=== PATIENT | male | born 1985 | race American Indian/Alaskan Native ===

== ENCOUNTER 2019-09-14 22:16 | Inpatient (IN) | payer OTHER ==
[2019-09-15 02:02] LABS: Basophils # (Auto) 0.1 K/mm3 (0.0-0.1); Basophils % (Auto) 0.8 % (0.0-1.8); Eosinophils # (Auto) 0.1 K/mm3 (0.0-0.4); Eosinophils % (Auto) 0.6 % (0.0-4.3); Hematocrit 45.3 % (35.5-45.6); Hemoglobin 15.4 gm/dl (11.8-15.2); Lymphocytes # (Auto) 4.1 K/mm3 (1.2-5.4); Lymphocytes % (Auto) 27.2 % (13.4-35.0); Mean Corpuscular HGB Conc 34 % (32-34); Mean Corpuscular Volume 89 fl (84-94); Monocytes # (Auto) 1.1 K/mm3 (0.0-0.8); Monocytes % (Auto) 7.6 % (0.0-7.3); Platelet Count 333 K/mm3 (140-440); Red Blood Count 5.07 M/mm3 (3.65-5.03)
[2019-09-15 02:10] LABS: BUN/Creatinine Ratio 11; Blood Urea Nitrogen 9 mg/dL (9-20); Calcium 9.7 mg/dL (8.4-10.2); Hemolysis Index 16
[2019-09-15 02:13] LABS: Bilirubin,Urine NEG (Negative); Blood,Urine SM (Negative); Color,Urine Straw (Yellow); Mucus,Urine FEW /HPF; Urobilinogen,Urine < 2.0 mg/dL (<2.0)
[2019-09-15] MEDS ORDERED: ONDANSETRON 4 MG/2 ML INJ IV ONE (04:43)
[2019-09-15] MEDS ORDERED: SODIUM CHLORIDE 0.9% 1000 ML 1,000 ML IV ONE ×3 (04:43)
[2019-09-15] MEDS ORDERED: DICYCLOMINE 20 MG/2 ML INJ IM ONE (04:43)
[2019-09-15] MEDS ORDERED: FAMOTIDINE 20 MG/2 ML INJ IV ONE (04:43)
--- NOTE | 2019-09-15 05:42 | Emergency Department Report ---
ED General Adult HPI - General Chief complaint: Weakness Stated complaint: GENERAL ILLNESS Time Seen by Provider: 09/15/19 04:42 Source: patient Mode of arrival: Ambulatory Limitations: No Limitations - History of Present Illness Initial comments: Patient is a 33-year-old male with no significant past medical history except for morbid obesity who is presenting with increased thirst and frequent urination and some lower abdominal pain for approximately a week. Patient has several family members in his immediate family who have diabetes. Patient states he has had some nausea but no vomiting. He denies fevers and chills. - Related Data Allergies Allergy/AdvReac Type Severity Reaction Status Date / Time No Known Allergies Allergy Unverified 09/15/19 01:11 ED Review of Systems ROS: Stated complaint: GENERAL ILLNESS Other details as noted in HPI Comment: All other systems reviewed and negative ED Past Medical Hx - Past Medical History Previous Medical History?: Yes Additional medical history: Morbid Obesity - Surgical History Past Surgical History?: No - Social History Smoking Status: Never Smoker Substance Use Type: Marijuana ED Physical Exam - General Limitations: No Limitations General appearance: alert, in no apparent distress - Head Head exam: Present: atraumatic, normocephalic - Eye Eye exam: Present: normal appearance, PERRL, EOMI - ENT ENT exam: Present: mucous membranes moist - Neck Neck exam: Present: normal inspection - Respiratory Respiratory exam: Present: normal lung sounds bilaterally. Absent: respiratory distress, wheezes, rales, rhonchi - Cardiovascular Cardiovascular Exam: Present: regular rate, tachycardia, normal heart sounds. Absent: systolic murmur, diastolic murmur, rubs, gallop - GI/Abdominal GI/Abdominal exam: Present: soft, tenderness (lower abd ), normal bowel sounds, other. Absent: distended, guarding, rebound - Rectal Rectal exam: Present: deferred - Extremities Exam Extremities exam: Present: normal inspection - Back Exam Back exam: Present: normal inspection - Neurological Exam Neurological exam: Present: alert, oriented X3 - Psychiatric Psychiatric exam: Present: normal affect, normal mood - Skin Skin exam: Present: warm, dry, intact, normal color, other (with induration and warmth to the right lower quadrant). Absent: rash ED Course Vital Signs 09/14/19 22:27 Temperature 98.1 F Pulse Rate 108 H Respiratory 20 Rate Blood Pressure 193/115 O2 Sat by Pulse 97 Oximetry ED Medical Decision Making - Lab Data Result diagrams: 09/15/19 01:33 09/15/19 01:33 Lab Results 09/15/19 09/15/19 09/15/19 Range/Units 01:17 01:33 01:33 WBC 15.0 H (4.5-11.0) K/mm3 RBC 5.07 H (3.65-5.03) M/mm3 Hgb 15.4 H (11.8-15.2) gm/dl Hct 45.3 (35.5-45.6) % MCV 89 (84-94) fl MCH 30 (28-32) pg MCHC 34 (32-34) % RDW 13.0 L (13.2-15.2) % Plt Count 333 (140-440) K/mm3 Lymph % (Auto) 27.2 (13.4-35.0) % [place] % (Auto) 7.6 H (0.0-7.3) % Eos % (Auto) 0.6 (0.0-4.3) % Baso % (Auto) 0.8 (0.0-1.8) % Lymph # 4.1 (1.2-5.4) K/mm3 [place] # 1.1 H (0.0-0.8) K/mm3 Eos # 0.1 (0.0-0.4) K/mm3 Baso # 0.1 (0.0-0.1) K/mm3 Seg Neutrophils % 63.8 (40.0-70.0) % Seg Neutrophils # 9.5 H (1.8-7.7) K/mm3 VBG pH (7.320-7.420) Sodium 133 L (137-145) mmol/L Potassium 4.3 (3.6-5.0) mmol/L Chloride 98.7 (98-107) mmol/L Carbon Dioxide 15 L (22-30) mmol/L Anion Gap 24 mmol/L BUN 9 (9-20) mg/dL Creatinine 0.8 (0.8-1.5) mg/dL Estimated GFR > 60 ml/min BUN/Creatinine Ratio 11 % Glucose 425 H (75-100) mg/dL POC Glucose 345 H (70-105) Calcium 9.7 (8.4-10.2) mg/dL Urine Color (Yellow) Urine Turbidity (Clear) Urine pH (5.0-7.0) Ur Specific [place] (1.003-1.030) Urine Protein (Negative) mg/dL Urine Glucose (UA) (Negative) mg/dL Urine Ketones (Negative) mg/dL Urine Blood (Negative) Urine Nitrite (Negative) Urine Bilirubin (Negative) Urine Urobilinogen (<2.0) mg/dL Ur Leukocyte Esterase (Negative) Urine WBC (Auto) (0.0-6.0) /HPF Urine RBC (Auto) (0.0-6.0) /HPF Urine Mucus /HPF 09/15/19 09/15/19 Range/Units 04:54 Unknown WBC (4.5-11.0) K/mm3 RBC (3.65-5.03) M/mm3 Hgb (11.8-15.2) gm/dl Hct (35.5-45.6) % MCV (84-94) fl MCH (28-32) pg MCHC (32-34) % RDW (13.2-15.2) % Plt Count (140-440) K/mm3 Lymph % (Auto) (13.4-35.0) % [place] % (Auto) (0.0-7.3) % Eos % (Auto) (0.0-4.3) % Baso % (Auto) (0.0-1.8) % Lymph # (1.2-5.4) K/mm3 [place] # (0.0-0.8) K/mm3 Eos # (0.0-0.4) K/mm3 Baso # (0.0-0.1) K/mm3 Seg Neutrophils % (40.0-70.0) % Seg Neutrophils # (1.8-7.7) K/mm3 VBG pH 7.248 L (7.320-7.420) Sodium (137-145) mmol/L Potassium (3.6-5.0) mmol/L Chloride (98-107) mmol/L Carbon Dioxide (22-30) mmol/L Anion Gap mmol/L BUN (9-20) mg/dL Creatinine (0.8-1.5) mg/dL Estimated GFR ml/min BUN/Creatinine Ratio % Glucose (75-100) mg/dL POC Glucose (70-105) Calcium (8.4-10.2) mg/dL Urine Color Straw (Yellow) Urine Turbidity Clear (Clear) Urine pH 5.0 (5.0-7.0) Ur Specific [place] 1.037 H (1.003-1.030) Urine Protein 30 mg/dl (Negative) mg/dL Urine Glucose (UA) >=500 (Negative) mg/dL Urine Ketones 80 (Negative) mg/dL Urine Blood Sm (Negative) Urine Nitrite Neg (Negative) Urine Bilirubin Neg (Negative) Urine Urobilinogen < 2.0 (<2.0) mg/dL Ur Leukocyte Esterase Neg (Negative) Urine WBC (Auto) 1.0 (0.0-6.0) /HPF Urine RBC (Auto) 2.0 (0.0-6.0) /HPF Urine Mucus Few /HPF - Medical Decision Making Patient was given Ms. to help with his abdominal discomfort. Patient started on IV fluids. When the patient was more comfortable not pacing in the room he was able to lift up his shirt and I was able to see his cellulitis on his lower abdomen. Patient will be started on sepsis protocol since the patient has some mild tachycardia and elevated white count. Patient started on clindamycin. Patient started on a insulin drip for mild DKA the patient be admitted to the hospitalist service. Critical Care Time: Yes (30) Critical care attestation.: If time is entered above; I have spent that time in minutes in the direct care of this critically ill patient, excluding procedure time. ED Disposition Clinical Impression: Diabetes mellitus, new onset DKA (diabetic ketoacidoses) Qualifiers: Diabetes mellitus type: other specified (including PAU) Cellulitis Qualifiers: Site of cellulitis: trunk Site of cellulitis of trunk: abdominal wall Qualified Code(s): L03.311 - Cellulitis of abdominal wall Disposition: OP ADMIT IP TO THIS HOSP Is pt being admited?: Yes Does the pt Need Aspirin: No Condition: Stable Instructions: Diabetic Ketoacidosis (ED), Diabetes Mellitus Type 2 in Adults (ED) Referrals: PRIMARY CARE, [Primary Care Provider] - 3-5 Days Time of Disposition: 05:48
[2019-09-15] MEDS: CLINDAMYCIN 600 MG/50 mL 600 MG/50 ML BAG IV SCH ×3 (06:29→23:25)
[2019-09-15] MEDS ORDERED: DEXTROSE 50% IN WATER (25GM) 50 ML SYRINGE IV PRN (08:59)
[2019-09-15] MEDS ORDERED: INSULIN REGULAR, HUMAN 100 UNITS in SODIUM CHLORIDE 0.9% 99 ML IV SCH (09:00)
[2019-09-15] MEDS: SODIUM CHLORIDE 0.9% 1000 ML 1,000 ML IV SCH (09:40)
[2019-09-15] MEDS ORDERED: SODIUM CHLORIDE 0.9% 1000 ML 1,000 ML ONE (09:40)
[2019-09-15] MEDS: INSULIN REGULAR, HUMAN 100 UNITS in SODIUM CHLORIDE 0.9% 99 ML IV SCH (10:03)
[2019-09-15 10:22] LABS: BUN/Creatinine Ratio 11; Blood Urea Nitrogen 8 mg/dL (9-20); Calcium 8.5 mg/dL (8.4-10.2); Hemolysis Index 2
[2019-09-15 12:22] LABS: BUN/Creatinine Ratio 10; Blood Urea Nitrogen 7 mg/dL (9-20); Calcium 8.5 mg/dL (8.4-10.2); Hemolysis Index 9
--- NOTE | 2019-09-15 13:20 | History and Physical Report ---
History of Present Illness Date of examination: 09/15/19 Date of admission: 09/15/19 05:21 Chief complaint: Polyuria polydipsia History of present illness: Patient is a 33-year-old male with no significant past medical history except for morbid obesity who presented through the emergency department with complaints of polyuria and polydipsia for the past 4 days. Patient also complained of lower abdominal pain for approximately one week. Patient has several family members in his immediate family who have diabetes. She reports 4-7 siblings with diabetes as well as mother and maternal grandmother. Patient states he has had some nausea but no vomiting. He denies fevers and chills. No cough or cold-like symptoms. No chest pain or shortness of breath. Past History Past Medical History: other (obesity) Past Surgical History: No surgical history Social history: no significant social history Family history: no significant family history Medications and Allergies Allergies Allergy/AdvReac Type Severity Reaction Status Date / Time No Known Allergies Allergy Unverified 09/15/19 01:11 Active Meds: Active Medications Dextrose (D50w (25gm) Syringe) 0 ml IV Q30MIN PRN; Protocol PRN Reason: Hypoglycemia Enoxaparin Sodium (Enoxaparin) 40 mg SUB-Q QDAY [facility] Clindamycin HCl (Cleocin 600 Mg/50 Ml) 600 mg in 50 mls @ 100 mls/hr IV Q8HR [facility]; Protocol Last Admin: 09/15/19 06:29 Dose: 100 mls/hr Documented by: Insulin Human Regular 100 (units/ Sodium Chloride) 100 mls @ 1 mls/hr IV TITR [facility]; Protocol Last Titration: 09/15/19 11:44 Dose: 4 units/hr, 4 mls/hr Documented by: Sodium Chloride (Nacl 0.9% 1000 Ml) 1,000 mls @ 125 mls/hr IV DIRECT [facility] Last Admin: 09/15/19 09:40 Dose: 125 mls/hr Documented by: Sodium Chloride (Sodium Chloride Flush Syringe 10 Ml) 10 ml IV BID [facility] Sodium Chloride (Sodium Chloride Flush Syringe 10 Ml) 10 ml IV PRN PRN PRN Reason: LINE FLUSH Stop: 09/25/19 08:58 Review of Systems All systems: negative Exam - Constitutional Vitals: Temp Pulse Resp BP Pulse Ox 98.1 F 89 20 184/100 98 09/14/19 22:27 09/15/19 07:49 09/15/19 07:49 09/15/19 07:49 09/15/19 07:49 General appearance: Present: no acute distress, well-nourished - EENT Eyes: Present: PERRL ENT: hearing intact, clear oral mucosa - Neck Neck: Present: supple, normal ROM - Respiratory Respiratory effort: normal Respiratory: bilateral: CTA - Cardiovascular Heart Sounds: Present: S1 & S2. Absent: rub, click - Extremities Extremities: pulses symmetrical, No edema Peripheral Pulses: within normal limits - Abdominal General gastrointestinal: Present: soft, tender, non-distended, normal bowel sounds Localized gastrointestinal: tender: RLQ (mild) Male genitourinary: Present: normal - Integumentary Integumentary: Present: warm, dry, erythema (induration and warmth to the right lower quadrant)) - Musculoskeletal Musculoskeletal: gait normal, strength equal bilaterally - Psychiatric Psychiatric: appropriate mood/affect, intact judgment & insight - Neurologic Neurologic: CNII-XII intact, moves all extremities Results - Labs CBC & Chem 7: 09/15/19 01:33 09/15/19 11:20 Labs: Abnormal lab results 09/15/19 09/15/19 09/15/19 Range/Units 01:17 01:33 01:33 WBC 15.0 H (4.5-11.0) K/mm3 RBC 5.07 H (3.65-5.03) M/mm3 Hgb 15.4 H (11.8-15.2) gm/dl RDW 13.0 L (13.2-15.2) % [place] % (Auto) 7.6 H (0.0-7.3) % [place] # 1.1 H (0.0-0.8) K/mm3 Seg Neutrophils # 9.5 H (1.8-7.7) K/mm3 VBG pH (7.320-7.420) Sodium 133 L (137-145) mmol/L Carbon Dioxide 15 L (22-30) mmol/L BUN (9-20) mg/dL Creatinine (0.8-1.5) mg/dL Glucose 425 H (75-100) mg/dL POC Glucose 345 H (70-105) Ur Specific [place] (1.003-1.030) 09/15/19 09/15/19 09/15/19 Range/Units 04:54 09:06 09:42 WBC (4.5-11.0) K/mm3 RBC (3.65-5.03) M/mm3 Hgb (11.8-15.2) gm/dl RDW (13.2-15.2) % [place] % (Auto) (0.0-7.3) % [place] # (0.0-0.8) K/mm3 Seg Neutrophils # (1.8-7.7) K/mm3 VBG pH 7.248 L (7.320-7.420) Sodium 134 L (137-145) mmol/L Carbon Dioxide 14 L (22-30) mmol/L BUN 8 L (9-20) mg/dL Creatinine 0.7 L (0.8-1.5) mg/dL Glucose 297 H (75-100) mg/dL POC Glucose 289 H (70-105) Ur Specific [place] (1.003-1.030) 09/15/19 09/15/19 09/15/19 Range/Units 09:52 11:20 11:49 WBC (4.5-11.0) K/mm3 RBC (3.65-5.03) M/mm3 Hgb (11.8-15.2) gm/dl RDW (13.2-15.2) % [place] % (Auto) (0.0-7.3) % [place] # (0.0-0.8) K/mm3 Seg Neutrophils # (1.8-7.7) K/mm3 VBG pH (7.320-7.420) Sodium 135 L (137-145) mmol/L Carbon Dioxide 14 L (22-30) mmol/L BUN 7 L (9-20) mg/dL Creatinine 0.7 L (0.8-1.5) mg/dL Glucose 279 H (75-100) mg/dL POC Glucose 281 H 246 H (70-105) Ur Specific [place] (1.003-1.030) 09/15/19 Range/Units Unknown WBC (4.5-11.0) K/mm3 RBC (3.65-5.03) M/mm3 Hgb (11.8-15.2) gm/dl RDW (13.2-15.2) % [place] % (Auto) (0.0-7.3) % [place] # (0.0-0.8) K/mm3 Seg Neutrophils # (1.8-7.7) K/mm3 VBG pH (7.320-7.420) Sodium (137-145) mmol/L Carbon Dioxide (22-30) mmol/L BUN (9-20) mg/dL Creatinine (0.8-1.5) mg/dL Glucose (75-100) mg/dL POC Glucose (70-105) Ur Specific [place] 1.037 H (1.003-1.030) Assessment and Plan DKA. Etiology secondary to sepsis/cellulitis. Patient will be maintained on the DKA pathway with IV insulin drip. We'll transition to long-acting insulin once the anion gap is closed. New onset DM. Dietitian consult. Patient will have diabetic education prior to discharge. Check hemoglobin A1c. Sepsis. Etiology secondary to abdominal wall cellulitis. Continue IV antibiotics and follow-up blood cultures and lactic acid levels. Abdominal wall cellulitis. Continue IV antibiotics and monitored closely. Morbid obesity. Patient has been counseled on the importance of exercise, diet and weight loss.
[2019-09-15 15:12] LABS: BUN/Creatinine Ratio 10; Blood Urea Nitrogen 7 mg/dL (9-20); Calcium 8.8 mg/dL (8.4-10.2); Hemolysis Index 9
[2019-09-15 16:04] LABS: BUN/Creatinine Ratio 10; Blood Urea Nitrogen 6 mg/dL (9-20); Calcium 8.6 mg/dL (8.4-10.2); Hemolysis Index 17
[2019-09-15] MEDS ORDERED: D5W/0.45% NACL/KCL 20 MEQ 20 MEQ/1,000 ML BAG IV ONE (17:31)
[2019-09-15] MEDS ORDERED: ENOXAPARIN 40 MG/0.4 ML INJ SUB-Q ONE (17:31)
[2019-09-15] MEDS: D5W/0.45% NACL/KCL 20 MEQ 20 MEQ/1,000 ML BAG IV SCH (17:34)
[2019-09-15] MEDS: ENOXAPARIN 40 MG/0.4 ML INJ SUB-Q SCH (17:40)
[2019-09-15 18:07] LABS: BUN/Creatinine Ratio 8; Blood Urea Nitrogen 5 mg/dL (9-20); Calcium 8.5 mg/dL (8.4-10.2); Hemolysis Index 15
[2019-09-16] MEDS: D5W/0.45% NACL/KCL 20 MEQ 20 MEQ/1,000 ML BAG IV SCH ×2 (01:17→18:46)
[2019-09-16 01:35] LABS: BUN/Creatinine Ratio 7; Blood Urea Nitrogen 5 mg/dL (9-20); Calcium 8.9 mg/dL (8.4-10.2); Hemolysis Index 1
[2019-09-16] MEDS: INSULIN REGULAR, HUMAN 100 UNITS in SODIUM CHLORIDE 0.9% 99 ML IV SCH ×2 (04:13→18:46)
[2019-09-16 05:00] LABS: Basophils # (Auto) 0.1 K/mm3 (0.0-0.1); Basophils % (Auto) 0.8 % (0.0-1.8); Eosinophils # (Auto) 0.1 K/mm3 (0.0-0.4); Hematocrit 41.9 % (35.5-45.6); Hemoglobin 14.3 gm/dl (11.8-15.2); Lymphocytes # (Auto) 3.1 K/mm3 (1.2-5.4); Mean Corpuscular HGB Conc 34 % (32-34); Mean Corpuscular Volume 90 fl (84-94); Monocytes # (Auto) 0.9 K/mm3 (0.0-0.8); Monocytes % (Auto) 8.3 % (0.0-7.3); Platelet Count 275 K/mm3 (140-440); Red Blood Count 4.66 M/mm3 (3.65-5.03); Red Cell Distribution Width 13.1 % (13.2-15.2)
[2019-09-16 05:18] LABS: BUN/Creatinine Ratio 8; Blood Urea Nitrogen 5 mg/dL (9-20); Calcium 8.8 mg/dL (8.4-10.2); Hemolysis Index 31
[2019-09-16] MEDS: CLINDAMYCIN 600 MG/50 mL 600 MG/50 ML BAG IV SCH ×3 (06:15→22:09)
[2019-09-16 10:10] LABS: BUN/Creatinine Ratio 8; Blood Urea Nitrogen 5 mg/dL (9-20); Hemolysis Index 4
--- NOTE | 2019-09-16 10:58 | Consultation ---
History of Present Illness Consult date: 09/16/19 Requesting physician: BETH CRABTREE Reason for consult: other (DKA) History of present illness: Patient is a 33-year-old male with no significant past medical history except for extreme obesity who presented through the emergency department with complaints of polyuria and polydipsia for the past 4 days. Patient also complained of lower abdominal pain for approximately one week. Patient has several family members in his immediate family who have diabetes. He reports 4-7 siblings with diabetes as well as mother and maternal grandmother. Patient states he has had some nausea but no vomiting. He denies fevers and chills. No cough or cold-like symptoms. No chest pain or shortness of breath. Admitted to the ICU for DKA on insulin infusion per protocol, I have been consulted for critical care management Past History Past Medical History: other (obesity) Past Surgical History: No surgical history Social history: no significant social history Family history: no significant family history Medications and Allergies Allergies Allergy/AdvReac Type Severity Reaction Status Date / Time No Known Allergies Allergy Unverified 09/15/19 01:11 Home Medications Medication Instructions Recorded Confirmed Last Taken Type Insulin NPH/Regular [NovoLIN 70/30] 25 unit SUB-Q BIDDIAB 30 Days #2 09/18/19 Unknown Rx vial Insulin Regular, Human [Novolin R] 8 units SUB-Q AC #1 vial 09/18/19 Unknown Rx Metoprolol [Lopressor TAB] 50 mg PO BID #60 tablet 09/18/19 Unknown Rx Valsartan 80 mg PO QDAY 30 Days #30 tablet 09/18/19 Unknown Rx levoFLOXacin [Levaquin] 750 mg PO QDAY #10 tablet 09/18/19 Unknown Rx Active Meds: Active Medications Dextrose (D50w (25gm) Syringe) 0 ml IV Q30MIN PRN; Protocol PRN Reason: Hypoglycemia Enoxaparin Sodium (Enoxaparin) 40 mg SUB-Q QDAY [facility] Last Admin: 09/15/19 17:40 Dose: 40 mg Documented by: Clindamycin HCl (Cleocin 600 Mg/50 Ml) 600 mg in 50 mls @ 100 mls/hr IV Q8HR [facility]; Protocol Last Admin: 09/16/19 06:15 Dose: 100 mls/hr Documented by: Insulin Human Regular 100 (units/ Sodium Chloride) 100 mls @ 1 mls/hr IV TITR [facility]; Protocol Last Titration: 09/16/19 10:48 Dose: 10 units/hr, 10 mls/hr Documented by: Sodium Chloride (Nacl 0.9% 1000 Ml) 1,000 mls @ 125 mls/hr IV DIRECT [facility] Last Infusion: 09/15/19 19:51 Dose: Infused Documented by: Potassium Chloride/Dextrose/Sod Cl (D5w/0.45% Nacl/Kcl 20 Meq) 20 meq in 1,000 mls @ 125 mls/hr IV DIRECT [facility] Last Admin: 09/16/19 01:17 Dose: 125 mls/hr Documented by: Sodium Chloride (Sodium Chloride Flush Syringe 10 Ml) 10 ml IV BID [facility] Last Admin: 09/15/19 23:28 Dose: Not Given Documented by: Sodium Chloride (Sodium Chloride Flush Syringe 10 Ml) 10 ml IV PRN PRN PRN Reason: LINE FLUSH Stop: 09/25/19 08:58 Physical Examination Vital signs: Vital Signs Temp Pulse Resp BP Pulse Ox 98.1 F 108 H 20 193/115 97 09/14/19 22:27 09/14/19 22:27 09/14/19 22:27 09/14/19 22:27 09/14/19 22:27 General appearance: Present: no acute distress, well-nourished - EENT Eyes: Present: PERRL ENT: hearing intact, clear oral mucosa - Neck Neck: Present: supple, normal ROM - Respiratory Respiratory effort: normal Respiratory: bilateral: CTA - Cardiovascular Heart Sounds: Present: S1 & S2. Absent: rub, click - Extremities Extremities: pulses symmetrical, No edema Peripheral Pulses: within normal limits - Abdominal General gastrointestinal: Present: soft, tender, non-distended, normal bowel sounds Localized gastrointestinal: tender: RLQ (mild) Male genitourinary: Present: normal - Integumentary Integumentary: Present: warm, dry, erythema (induration and warmth to the right lower quadrant)) - Musculoskeletal Musculoskeletal: gait normal, strength equal bilaterally - Psychiatric Psychiatric: appropriate mood/affect, intact judgment & insight - Neurologic Neurologic: CNII-XII intact, moves all extremities Results - Laboratory Findings CBC and BMP: 09/18/19 05:10 09/18/19 05:10 Abnormal lab findings: Abnormal Labs 09/15/19 09/15/19 09/15/19 01:17 01:33 01:33 WBC 15.0 H RBC 5.07 H Hgb 15.4 H RDW 13.0 L [place] % (Auto) 7.6 H [place] # 1.1 H Seg Neutrophils # 9.5 H VBG pH Sodium 133 L Potassium Carbon Dioxide 15 L BUN Creatinine Glucose 425 H POC Glucose 345 H Hemoglobin A1c Ur Specific [place] 09/15/19 09/15/19 09/15/19 04:54 09:06 09:42 WBC RBC Hgb RDW [place] % (Auto) [place] # Seg Neutrophils # VBG pH 7.248 L Sodium 134 L Potassium Carbon Dioxide 14 L BUN 8 L Creatinine 0.7 L Glucose 297 H POC Glucose 289 H Hemoglobin A1c Ur Specific [place] 09/15/19 09/15/19 09/15/19 09:52 11:20 11:49 WBC RBC Hgb RDW [place] % (Auto) [place] # Seg Neutrophils # VBG pH Sodium 135 L Potassium Carbon Dioxide 14 L BUN 7 L Creatinine 0.7 L Glucose 279 H POC Glucose 281 H 246 H Hemoglobin A1c Ur Specific [place] 09/15/19 09/15/19 09/15/19 13:33 13:40 13:40 WBC RBC Hgb RDW [place] % (Auto) [place] # Seg Neutrophils # VBG pH Sodium 136 L Potassium Carbon Dioxide 14 L BUN 7 L Creatinine 0.7 L Glucose 257 H POC Glucose 231 H Hemoglobin A1c 10.5 H Ur Specific [place] 09/15/19 09/15/19 09/15/19 15:05 15:15 16:36 WBC RBC Hgb RDW [place] % (Auto) [place] # Seg Neutrophils # VBG pH Sodium 134 L Potassium Carbon Dioxide 13 L BUN 6 L Creatinine 0.6 L Glucose 242 H POC Glucose 219 H 240 H Hemoglobin A1c Ur Specific [place] 09/15/19 09/15/19 09/15/19 16:40 17:26 18:00 WBC RBC Hgb RDW [place] % (Auto) [place] # Seg Neutrophils # VBG pH Sodium Potassium Carbon Dioxide 15 L BUN 5 L Creatinine 0.6 L Glucose 230 H POC Glucose 231 H 221 H Hemoglobin A1c Ur Specific [place] 09/15/19 09/15/19 09/15/19 19:15 20:14 21:09 WBC RBC Hgb RDW [place] % (Auto) [place] # Seg Neutrophils # VBG pH Sodium Potassium Carbon Dioxide BUN Creatinine Glucose POC Glucose 213 H 192 H 204 H Hemoglobin A1c Ur Specific [place] 09/15/19 09/15/19 09/15/19 22:27 23:12 Unknown WBC RBC Hgb RDW [place] % (Auto) [place] # Seg Neutrophils # VBG pH Sodium Potassium Carbon Dioxide BUN Creatinine Glucose POC Glucose 194 H 196 H Hemoglobin A1c Ur Specific [place] 1.037 H 09/16/19 09/16/19 09/16/19 00:20 00:53 01:24 WBC RBC Hgb RDW [place] % (Auto) [place] # Seg Neutrophils # VBG pH Sodium Potassium Carbon Dioxide 18 L BUN 5 L Creatinine 0.7 L Glucose 188 H POC Glucose 173 H 159 H Hemoglobin A1c Ur Specific [place] 09/16/19 09/16/19 09/16/19 02:19 03:18 03:55 WBC RBC Hgb RDW 13.1 L [place] % (Auto) 8.3 H [place] # 0.9 H Seg Neutrophils # VBG pH Sodium Potassium Carbon Dioxide BUN Creatinine Glucose POC Glucose 161 H 168 H Hemoglobin A1c Ur Specific [place] 09/16/19 09/16/19 09/16/19 03:55 04:20 05:36 WBC RBC Hgb RDW [place] % (Auto) [place] # Seg Neutrophils # VBG pH Sodium Potassium Carbon Dioxide 18 L BUN 5 L Creatinine 0.6 L Glucose 182 H POC Glucose 193 H 179 H Hemoglobin A1c Ur Specific [place] 09/16/19 09/16/19 09:09 09:43 WBC RBC Hgb RDW [place] % (Auto) [place] # Seg Neutrophils # VBG pH Sodium Potassium 3.3 L Carbon Dioxide 16 L BUN 5 L Creatinine 0.6 L Glucose 201 H POC Glucose 186 H Hemoglobin A1c Ur Specific [place] Assessment and Plan DKA. New onset DM Sepsis. Etiology secondary to abdominal wall cellulitis Abdominal wall cellulitis Extreme obesity -Treatment per DKA protocol -IV insulin, serial BMPS. Once AG is closed, switch to weight based insulin therapy with steady carb diet -RN consult fro diabetic education -Antibiotics -VTE prophylaxis -PT/OT, increase activity as tolerated -Life style modification and weight loss discussed in details -Fasting lipid panel, TSH and HBA1c measurements -Mobility fro pressure ulcer prevention -Blood pressure monitoring. -Out patient evaluation for sleep apnea Thank you for consult, will follow.
--- NOTE | 2019-09-16 11:27 | Progress Note ---
Assessment and Plan Assessment and plan: DKA. Etiology secondary to sepsis/cellulitis. Cont. on the DKA pathway with IV insulin drip. We'll transition to long-acting insulin once the anion gap is closed. New onset DM. Dietitian consult. Patient will have diabetic education prior to discharge. Check hemoglobin A1c. Sepsis. Etiology secondary to abdominal wall cellulitis. Continue IV antibiotics and follow-up blood cultures and lactic acid levels. Abdominal wall cellulitis. Continue IV antibiotics and monitor closely. Morbid obesity. Patient has been counseled on the importance of exercise, diet and weight loss. History Interval history: Patient denies any complaints other than dry mouth. Hospitalist Physical - Constitutional Vitals: Temp Pulse Resp BP Pulse Ox 98.8 F 88 18 169/101 95 09/16/19 07:46 09/16/19 09:01 09/16/19 10:00 09/16/19 09:01 09/16/19 09:01 General appearance: Present: no acute distress, well-nourished - EENT Eyes: Present: PERRL, EOM intact ENT: hearing intact, clear oral mucosa, dentition normal - Neck Neck: Present: supple, normal ROM - Respiratory Respiratory effort: normal Respiratory: bilateral: CTA - Cardiovascular Rhythm: regular Heart Sounds: Present: S1 & S2. Absent: gallop, rub - Extremities Extremities: no ischemia, No edema, Full ROM - Abdominal General gastrointestinal: soft, non-tender, non-distended, normal bowel sounds - Integumentary Integumentary: Present: clear, warm, dry - Neurologic Neurologic: CNII-XII intact, moves all extremities Results - Labs CBC & Chem 7: 09/16/19 03:55 09/16/19 09:09 Labs: Laboratory Last Values WBC 10.7 K/mm3 (4.5-11.0) 09/16/19 03:55 RBC 4.66 M/mm3 (3.65-5.03) 09/16/19 03:55 Hgb 14.3 gm/dl (11.8-15.2) 09/16/19 03:55 Hct 41.9 % (35.5-45.6) 09/16/19 03:55 MCV 90 fl (84-94) 09/16/19 03:55 MCH 31 pg (28-32) 09/16/19 03:55 MCHC 34 % (32-34) 09/16/19 03:55 RDW 13.1 % (13.2-15.2) L 09/16/19 03:55 Plt Count 275 K/mm3 (140-440) 09/16/19 03:55 Lymph % (Auto) 29.0 % (13.4-35.0) 09/16/19 03:55 [place] % (Auto) 8.3 % (0.0-7.3) H 09/16/19 03:55 Eos % (Auto) 1.0 % (0.0-4.3) 09/16/19 03:55 Baso % (Auto) 0.8 % (0.0-1.8) 09/16/19 03:55 Lymph # 3.1 K/mm3 (1.2-5.4) 09/16/19 03:55 [place] # 0.9 K/mm3 (0.0-0.8) H 09/16/19 03:55 Eos # 0.1 K/mm3 (0.0-0.4) 09/16/19 03:55 Baso # 0.1 K/mm3 (0.0-0.1) 09/16/19 03:55 Seg Neutrophils % 60.9 % (40.0-70.0) 09/16/19 03:55 Seg Neutrophils # 6.5 K/mm3 (1.8-7.7) 09/16/19 03:55 VBG pH 7.248 (7.320-7.420) L 09/15/19 04:54 Sodium 139 mmol/L (137-145) 09/16/19 09:09 Potassium 3.3 mmol/L (3.6-5.0) L 09/16/19 09:09 Chloride 103.6 mmol/L (98-107) 09/16/19 09:09 Carbon Dioxide 16 mmol/L (22-30) L 09/16/19 09:09 Anion Gap 23 mmol/L 09/16/19 09:09 BUN 5 mg/dL (9-20) L 09/16/19 09:09 Creatinine 0.6 mg/dL (0.8-1.5) L 09/16/19 09:09 Estimated GFR > 60 ml/min 09/16/19 09:09 BUN/Creatinine Ratio 8 % 09/16/19 09:09 Glucose 201 mg/dL (75-100) H 09/16/19 09:09 POC Glucose 186 (70-105) H 09/16/19 09:43 Hemoglobin A1c 10.5 % (4-6) H 09/15/19 13:40 Lactic Acid 1.20 mmol/L (0.7-2.0) 09/15/19 08:31 Calcium 9.0 mg/dL (8.4-10.2) 09/16/19 09:09 Phosphorus 3.20 mg/dL (2.5-4.5) 09/15/19 09:42 Magnesium 1.70 mg/dL (1.7-2.3) 09/15/19 09:42 Urine Color Straw (Yellow) 09/15/19 Unknown Urine Turbidity Clear (Clear) 09/15/19 Unknown Urine pH 5.0 (5.0-7.0) 09/15/19 Unknown Ur Specific [place] 1.037 (1.003-1.030) H 09/15/19 Unknown Urine Protein 30 mg/dl mg/dL (Negative) 09/15/19 Unknown Urine Glucose (UA) >=500 mg/dL (Negative) 09/15/19 Unknown Urine Ketones 80 mg/dL (Negative) 09/15/19 Unknown Urine Blood Sm (Negative) 09/15/19 Unknown Urine Nitrite Neg (Negative) 09/15/19 Unknown Urine Bilirubin Neg (Negative) 09/15/19 Unknown Urine Urobilinogen < 2.0 mg/dL (<2.0) 09/15/19 Unknown Ur Leukocyte Esterase Neg (Negative) 09/15/19 Unknown Urine WBC (Auto) 1.0 /HPF (0.0-6.0) 09/15/19 Unknown Urine RBC (Auto) 2.0 /HPF (0.0-6.0) 09/15/19 Unknown Urine Mucus Few /HPF 09/15/19 Unknown Active Medications - Current Medications Current Medications: Generic Name Dose Route Start Last Admin Trade Name Freq PRN Reason Stop Dose Admin Dextrose 0 ml 09/15/19 08:59 D50w (25gm) Syringe IV Q30MIN PRN Hypoglycemia Protocol Enoxaparin Sodium 40 mg 09/15/19 10:00 09/15/19 17:40 Enoxaparin SUB-Q 40 mg QDAY CHAUNCEY Administration Clindamycin HCl 600 mg in 50 mls @ 100 mls/hr 09/15/19 06:00 09/16/19 06:15 Cleocin 600 Mg/50 Ml IV 100 mls/hr Q8HR CHAUNCEY Administration Protocol Insulin Human Regular 100 100 mls @ 1 mls/hr 09/15/19 09:00 09/16/19 10:48 units/ Sodium Chloride IV 10 units/hr TITR CHAUNCEY 10 mls/hr Titration Protocol 1 UNITS/HR Sodium Chloride 1,000 mls @ 125 mls/hr 09/15/19 09:00 09/15/19 19:51 Nacl 0.9% 1000 Ml IV Infused DIRECT CHAUNCEY Infusion Potassium Chloride/Dextrose/Sod Cl 20 meq in 1,000 mls @ 125 mls/hr 09/15/19 18:00 09/16/19 01:17 D5w/0.45% Nacl/Kcl 20 Meq IV 125 mls/hr DIRECT CHAUNCEY Administration Sodium Chloride 10 ml 09/15/19 10:00 09/15/19 23:28 Sodium Chloride Flush Syringe 10 Ml IV Not Given BID CHAUNCEY Sodium Chloride 10 ml 09/15/19 08:59 Sodium Chloride Flush Syringe 10 Ml IV 09/25/19 08:58 PRN PRN LINE FLUSH Nutrition/Malnutrition Assess - Dietary Evaluation Nutrition/Malnutrition Findings: Nutrition Notes Start: 09/15/19 13:28 Freq: Status: Active Protocol: Document 09/15/19 13:28 DW (Rec: 09/15/19 13:31 DW [id number]) Co-Sign 09/15/19 13:28 LM Nutrition Notes Need for Assessment generated from: MD Order,Education Initial or Follow up Brief Note Subjective/Other Information MD consult for DKA Pt not transfered to unit upon arrival Nutrition Intervention Follow-Up By: 09/18/19 Additional Comments FU education/assessment
[2019-09-16] MEDS ORDERED: METOPROLOL TARTRATE 5 MG/5 ML INJ IV ONE (13:13)
[2019-09-16] MEDS: ENOXAPARIN 40 MG/0.4 ML INJ SUB-Q SCH (13:25)
[2019-09-16] MEDS: amLODIPine 5 MG TAB PO SCH (13:26)
[2019-09-16] MEDS: METOPROLOL TARTRATE 50 MG TAB PO SCH ×2 (13:28→22:00)
[2019-09-16] MEDS ORDERED: DEXTROSE 50% IN WATER (25GM) 50 ML SYRINGE IV PRN (17:29)
[2019-09-16] MEDS ORDERED: INSULIN LISPRO 100 UNIT/ML SUB-Q SCH (18:00)
[2019-09-16 19:29] LABS: BUN/Creatinine Ratio 8; Blood Urea Nitrogen 5 mg/dL (9-20); Calcium 9.1 mg/dL (8.4-10.2); Hemolysis Index 7
[2019-09-16] MEDS ORDERED: SODIUM BICARB 8.4% 50 MEQ/50 ML SYRINGE IV ONE (21:00)
[2019-09-16] MEDS ORDERED: hydrALAZINE 20 MG/1 ML INJ ONE (22:04)
[2019-09-16] MEDS: hydrALAZINE 20 MG/1 ML INJ IV PRN (22:10)
[2019-09-16] MEDS: INSULIN LISPRO 100 UNIT/ML SUB-Q SCH (22:41)
[2019-09-17] MEDS ORDERED: SODIUM CHLORIDE 0.9% 1000 ML 1,000 ML IV SCH (01:15)
[2019-09-17] MEDS: CLINDAMYCIN 600 MG/50 mL 600 MG/50 ML BAG IV SCH ×3 (06:25→21:26)
[2019-09-17] MEDS: INSULIN LISPRO 100 UNIT/ML SUB-Q SCH ×4 (06:45→21:25)
[2019-09-17] MEDS ORDERED: DEXTROSE 50% IN WATER (25GM) 50 ML SYRINGE IV PRN (07:32)
[2019-09-17 07:57] LABS: Hematocrit 39.8 % (35.5-45.6); Hemoglobin 13.6 gm/dl (11.8-15.2); Mean Corpuscular HGB Conc 34 % (32-34); Mean Corpuscular Volume 89 fl (84-94); Platelet Count 280 K/mm3 (140-440); Red Blood Count 4.46 M/mm3 (3.65-5.03); Red Cell Distribution Width 13.2 % (13.2-15.2)
[2019-09-17 08:07] LABS: BUN/Creatinine Ratio 10; Blood Urea Nitrogen 6 mg/dL (9-20); Calcium 8.8 mg/dL (8.4-10.2); Hemolysis Index 5
[2019-09-17] MEDS: INSULIN NPH/REGULAR 70/30 INJ SUB-Q SCH ×2 (08:36→19:41)
[2019-09-17] MEDS: hydrALAZINE 20 MG/1 ML INJ IV PRN (08:58)
--- NOTE | 2019-09-17 10:21 | Progress Note ---
Assessment and Plan Assessment and plan: DKA. Etiology secondary to sepsis/cellulitis. Resolved. We will discontinue IV insulin drip and transition to 70/30 insulin twice a day. Also, we will start sliding scale regular insulin and Accu-Cheks every before meals and at bedtime New onset DM. Dietitian consulted. Patient will have diabetic education prior to discharge. Follow-up hemoglobin A1c. Sepsis. Etiology secondary to abdominal wall cellulitis. Continue IV antibiotics and follow-up blood cultures and lactic acid levels. Abdominal wall cellulitis. Continue IV antibiotics and monitor closely. Morbid obesity. Patient has been counseled on the importance of exercise, diet and weight loss. Disposition. Patient will be transferred to the floor. History Interval history: Patient denies any complaints other than dry mouth. Hospitalist Physical - Constitutional Vitals: Temp Pulse Resp BP Pulse Ox 98.4 F 91 H 15 161/99 100 09/17/19 07:51 09/17/19 09:00 09/17/19 09:00 09/17/19 09:00 09/17/19 09:00 General appearance: Present: no acute distress, obese - EENT Eyes: Present: PERRL, EOM intact ENT: hearing intact, clear oral mucosa, dentition normal - Neck Neck: Present: supple, normal ROM - Respiratory Respiratory effort: normal Respiratory: bilateral: CTA - Cardiovascular Rhythm: regular Heart Sounds: Present: S1 & S2. Absent: gallop, rub - Extremities Extremities: no ischemia, No edema, Full ROM - Abdominal General gastrointestinal: soft, non-tender, non-distended, normal bowel sounds - Integumentary Integumentary: Present: clear, warm, dry - Neurologic Neurologic: CNII-XII intact, moves all extremities Results - Labs CBC & Chem 7: 09/17/19 07:33 09/17/19 07:33 Labs: Laboratory Last Values WBC 8.6 K/mm3 (4.5-11.0) 09/17/19 07:33 RBC 4.46 M/mm3 (3.65-5.03) 09/17/19 07:33 Hgb 13.6 gm/dl (11.8-15.2) 09/17/19 07:33 Hct 39.8 % (35.5-45.6) 09/17/19 07:33 MCV 89 fl (84-94) 09/17/19 07:33 MCH 31 pg (28-32) 09/17/19 07:33 MCHC 34 % (32-34) 09/17/19 07:33 RDW 13.2 % (13.2-15.2) 09/17/19 07:33 Plt Count 280 K/mm3 (140-440) 09/17/19 07:33 Lymph % (Auto) 29.0 % (13.4-35.0) 09/16/19 03:55 [place] % (Auto) 8.3 % (0.0-7.3) H 09/16/19 03:55 Eos % (Auto) 1.0 % (0.0-4.3) 09/16/19 03:55 Baso % (Auto) 0.8 % (0.0-1.8) 09/16/19 03:55 Lymph # 3.1 K/mm3 (1.2-5.4) 09/16/19 03:55 [place] # 0.9 K/mm3 (0.0-0.8) H 09/16/19 03:55 Eos # 0.1 K/mm3 (0.0-0.4) 09/16/19 03:55 Baso # 0.1 K/mm3 (0.0-0.1) 09/16/19 03:55 Seg Neutrophils % 60.9 % (40.0-70.0) 09/16/19 03:55 Seg Neutrophils # 6.5 K/mm3 (1.8-7.7) 09/16/19 03:55 VBG pH 7.248 (7.320-7.420) L 09/15/19 04:54 Sodium 140 mmol/L (137-145) 09/17/19 07:33 Potassium 3.4 mmol/L (3.6-5.0) L 09/17/19 07:33 Chloride 103.7 mmol/L (98-107) 09/17/19 07:33 Carbon Dioxide 16 mmol/L (22-30) L 09/17/19 07:33 Anion Gap 24 mmol/L 09/17/19 07:33 BUN 6 mg/dL (9-20) L 09/17/19 07:33 Creatinine 0.6 mg/dL (0.8-1.5) L 09/17/19 07:33 Estimated GFR > 60 ml/min 09/17/19 07:33 BUN/Creatinine Ratio 10 % 09/17/19 07:33 Glucose 233 mg/dL (75-100) H 09/17/19 07:33 POC Glucose 238 (70-105) H 09/17/19 06:35 Hemoglobin A1c 10.5 % (4-6) H 09/15/19 13:40 Lactic Acid 1.20 mmol/L (0.7-2.0) 09/15/19 08:31 Calcium 8.8 mg/dL (8.4-10.2) 09/17/19 07:33 Phosphorus 3.20 mg/dL (2.5-4.5) 09/15/19 09:42 Magnesium 1.70 mg/dL (1.7-2.3) 09/15/19 09:42 Urine Color Straw (Yellow) 09/15/19 Unknown Urine Turbidity Clear (Clear) 09/15/19 Unknown Urine pH 5.0 (5.0-7.0) 09/15/19 Unknown Ur Specific [place] 1.037 (1.003-1.030) H 09/15/19 Unknown Urine Protein 30 mg/dl mg/dL (Negative) 09/15/19 Unknown Urine Glucose (UA) >=500 mg/dL (Negative) 09/15/19 Unknown Urine Ketones 80 mg/dL (Negative) 09/15/19 Unknown Urine Blood Sm (Negative) 09/15/19 Unknown Urine Nitrite Neg (Negative) 09/15/19 Unknown Urine Bilirubin Neg (Negative) 09/15/19 Unknown Urine Urobilinogen < 2.0 mg/dL (<2.0) 09/15/19 Unknown Ur Leukocyte Esterase Neg (Negative) 09/15/19 Unknown Urine WBC (Auto) 1.0 /HPF (0.0-6.0) 09/15/19 Unknown Urine RBC (Auto) 2.0 /HPF (0.0-6.0) 09/15/19 Unknown Urine Mucus Few /HPF 09/15/19 Unknown Active Medications - Current Medications Current Medications: Generic Name Dose Route Start Last Admin Trade Name Freq PRN Reason Stop Dose Admin Amlodipine Besylate 5 mg 09/16/19 13:00 09/16/19 13:26 Amlodipine PO 5 mg QDAY CHAUNCEY Administration Dextrose 50 ml 09/16/19 17:29 D50w (25gm) Syringe IV Q30MIN PRN Hypoglycemia Protocol Enoxaparin Sodium 40 mg 09/15/19 10:00 09/16/19 13:25 Enoxaparin SUB-Q 40 mg QDAY CHAUNCEY Administration Hydralazine HCl 10 mg 09/16/19 21:43 09/17/19 08:58 Apresoline IV 10 mg Q4H PRN Administration SBP>160 Clindamycin HCl 600 mg in 50 mls @ 100 mls/hr 09/15/19 06:00 09/17/19 06:25 Cleocin 600 Mg/50 Ml IV 100 mls/hr Q8HR CHAUNCEY Administration Protocol Sodium Chloride 1,000 mls @ 125 mls/hr 09/15/19 09:00 09/15/19 19:51 Nacl 0.9% 1000 Ml IV Infused DIRECT CHAUNCEY Infusion Sodium Chloride 1,000 mls @ 100 mls/hr 09/17/19 01:15 09/17/19 02:25 Nacl 0.9% 1000 Ml IV 100 mls/hr DIRECT CHAUNCEY Administration Insulin Human Isoph/Insulin Regular 20 unit 09/17/19 08:00 09/17/19 08:36 Humulin 70/30 SUB-Q 20 unit BIDDIAB CHAUNCEY Administration Insulin Human Lispro 0 unit 09/16/19 22:00 09/17/19 06:45 Humalog SUB-Q 4 unit ACHS CHAUNCEY Administration Protocol Metoprolol Tartrate 50 mg 09/16/19 13:00 09/16/19 22:00 Metoprolol PO Not Given BID CHAUNCEY Sodium Chloride 10 ml 09/15/19 10:00 09/16/19 22:41 Sodium Chloride Flush Syringe 10 Ml IV 10 ml BID CHAUNCEY Administration Sodium Chloride 10 ml 09/15/19 08:59 Sodium Chloride Flush Syringe 10 Ml IV 09/25/19 08:58 PRN PRN LINE FLUSH Nutrition/Malnutrition Assess - Dietary Evaluation Nutrition/Malnutrition Findings: Nutrition Notes Start: 09/15/19 13:28 Freq: Status: Active Protocol: Document 09/16/19 12:16 MALIK (Rec: 09/16/19 12:17 MALIK [id number]) Nutrition Notes 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 Pt asleep during both attempted visits and did not respond when RD called his name. Nutrition Intervention Follow-Up By: 09/18/19 Additional Comments F/u for diet education
[2019-09-17] MEDS: ENOXAPARIN 40 MG/0.4 ML INJ SUB-Q SCH (10:39)
[2019-09-17] MEDS: METOPROLOL TARTRATE 50 MG TAB PO SCH ×2 (10:39→21:20)
[2019-09-17] MEDS: amLODIPine 5 MG TAB PO SCH (10:39)
--- NOTE | 2019-09-17 13:06 | Progress Note ---
Assessment and Plan DKA. New onset DM Sepsis. Etiology secondary to abdominal wall cellulitis Abdominal wall cellulitis Extreme obesity -Treatment per DKA protocol - switch to weight based insulin therapy with steady carb diet -RN consult for diabetic education -Antibiotics, to complete course -VTE prophylaxis -PT/OT, increase activity as tolerated -Life style modification and weight loss discussed in details -Fasting lipid panel, TSH and HBA1c measurements -Mobility fro pressure ulcer prevention -Blood pressure monitoring. -Out patient evaluation for sleep apnea OK to transfer out of the ICU Subjective Date of service: 09/17/19 Interval history: Patient is seen today for: DKA, sepsis secondary to abdominal wall cellulitis, extreme obesity Seen and examined at bedside; 24hour events reviewed; nursing and respiratory care staff consulted; no adverse overnight events reported to me; Lying peacefully in bed, denies any chest pain, no shortness of breath, no fevers or chills. Off insulin therapy, getting out of bed Objective - Exam Narrative Exam: Vitals, reviewed General appearance: Present: no acute distress, well-nourished - EENT Eyes: Present: PERRL ENT: hearing intact, clear oral mucosa - Neck Neck: Present: supple, normal ROM - Respiratory Respiratory effort: normal Respiratory: bilateral: CTA - Cardiovascular Heart Sounds: Present: S1 & S2. Absent: rub, click - Extremities Extremities: pulses symmetrical, No edema Peripheral Pulses: within normal limits - Abdominal General gastrointestinal: Present: soft, tender, non-distended, normal bowel sounds Localized gastrointestinal: tender: RLQ (mild) Male genitourinary: Present: normal - Integumentary Integumentary: Present: warm, dry, erythema (induration and warmth to the right lower quadrant)) - Musculoskeletal Musculoskeletal: gait normal, strength equal bilaterally - Psychiatric Psychiatric: appropriate mood/affect, intact judgment & insight - Neurologic Neurologic: CNII-XII intact, moves all extremities Vital Signs - 12hr 09/17/19 09/17/19 09/17/19 02:00 03:00 04:00 Temperature 97.4 F L Pulse Rate 105 H 93 H 97 H Respiratory 18 13 21 Rate Blood Pressure 146/87 147/87 151/89 O2 Sat by Pulse 98 99 98 Oximetry 09/17/19 09/17/19 09/17/19 05:00 06:00 07:00 Temperature Pulse Rate 107 H 92 H 89 Respiratory 27 H 20 12 Rate Blood Pressure 151/89 151/93 151/93 O2 Sat by Pulse 97 98 98 Oximetry 09/17/19 09/17/19 09/17/19 07:51 08:00 08:58 Temperature 98.4 F Pulse Rate 86 95 H Respiratory 19 Rate Blood Pressure 161/99 174/99 O2 Sat by Pulse 98 Oximetry 09/17/19 09/17/19 09:00 10:39 Temperature Pulse Rate 91 H 103 H Respiratory 15 Rate Blood Pressure 161/99 171/88 O2 Sat by Pulse 100 Oximetry CBC and BMP: 09/18/19 05:10 09/18/19 05:10 Abnormal lab findings: Abnormal Labs 09/15/19 09/15/19 09/15/19 01:17 01:33 01:33 WBC 15.0 H RBC 5.07 H Hgb 15.4 H RDW 13.0 L [place] % (Auto) 7.6 H [place] # 1.1 H Seg Neutrophils # 9.5 H VBG pH Sodium 133 L Potassium Carbon Dioxide 15 L BUN Creatinine Glucose 425 H POC Glucose 345 H Hemoglobin A1c Ur Specific [place] 09/15/19 09/15/19 09/15/19 04:54 09:06 09:42 WBC RBC Hgb RDW [place] % (Auto) [place] # Seg Neutrophils # VBG pH 7.248 L Sodium 134 L Potassium Carbon Dioxide 14 L BUN 8 L Creatinine 0.7 L Glucose 297 H POC Glucose 289 H Hemoglobin A1c Ur Specific [place] 09/15/19 09/15/19 09/15/19 09:52 11:20 11:49 WBC RBC Hgb RDW [place] % (Auto) [place] # Seg Neutrophils # VBG pH Sodium 135 L Potassium Carbon Dioxide 14 L BUN 7 L Creatinine 0.7 L Glucose 279 H POC Glucose 281 H 246 H Hemoglobin A1c Ur Specific [place] 09/15/19 09/15/19 09/15/19 13:33 13:40 13:40 WBC RBC Hgb RDW [place] % (Auto) [place] # Seg Neutrophils # VBG pH Sodium 136 L Potassium Carbon Dioxide 14 L BUN 7 L Creatinine 0.7 L Glucose 257 H POC Glucose 231 H Hemoglobin A1c 10.5 H Ur Specific [place] 09/15/19 09/15/19 09/15/19 15:05 15:15 16:36 WBC RBC Hgb RDW [place] % (Auto) [place] # Seg Neutrophils # VBG pH Sodium 134 L Potassium Carbon Dioxide 13 L BUN 6 L Creatinine 0.6 L Glucose 242 H POC Glucose 219 H 240 H Hemoglobin A1c Ur Specific [place] 09/15/19 09/15/19 09/15/19 16:40 17:26 18:00 WBC RBC Hgb RDW [place] % (Auto) [place] # Seg Neutrophils # VBG pH Sodium Potassium Carbon Dioxide 15 L BUN 5 L Creatinine 0.6 L Glucose 230 H POC Glucose 231 H 221 H Hemoglobin A1c Ur Specific [place] 09/15/19 09/15/19 09/15/19 19:15 20:14 21:09 WBC RBC Hgb RDW [place] % (Auto) [place] # Seg Neutrophils # VBG pH Sodium Potassium Carbon Dioxide BUN Creatinine Glucose POC Glucose 213 H 192 H 204 H Hemoglobin A1c Ur Specific [place] 09/15/19 09/15/19 09/15/19 22:27 23:12 Unknown WBC RBC Hgb RDW [place] % (Auto) [place] # Seg Neutrophils # VBG pH Sodium Potassium Carbon Dioxide BUN Creatinine Glucose POC Glucose 194 H 196 H Hemoglobin A1c Ur Specific [place] 1.037 H 09/16/19 09/16/19 09/16/19 00:20 00:53 01:24 WBC RBC Hgb RDW [place] % (Auto) [place] # Seg Neutrophils # VBG pH Sodium Potassium Carbon Dioxide 18 L BUN 5 L Creatinine 0.7 L Glucose 188 H POC Glucose 173 H 159 H Hemoglobin A1c Ur Specific [place] 09/16/19 09/16/19 09/16/19 02:19 03:18 03:55 WBC RBC Hgb RDW 13.1 L [place] % (Auto) 8.3 H [place] # 0.9 H Seg Neutrophils # VBG pH Sodium Potassium Carbon Dioxide BUN Creatinine Glucose POC Glucose 161 H 168 H Hemoglobin A1c Ur Specific [place] 09/16/19 09/16/19 09/16/19 03:55 04:20 05:36 WBC RBC Hgb RDW [place] % (Auto) [place] # Seg Neutrophils # VBG pH Sodium Potassium Carbon Dioxide 18 L BUN 5 L Creatinine 0.6 L Glucose 182 H POC Glucose 193 H 179 H Hemoglobin A1c Ur Specific [place] 09/16/19 09/16/19 09/16/19 06:24 08:26 09:09 WBC RBC Hgb RDW [place] % (Auto) [place] # Seg Neutrophils # VBG pH Sodium Potassium 3.3 L Carbon Dioxide 16 L BUN 5 L Creatinine 0.6 L Glucose 201 H POC Glucose 155 H 174 H Hemoglobin A1c Ur Specific [place] 09/16/19 09/16/19 09/16/19 09:43 10:23 11:39 WBC RBC Hgb RDW [place] % (Auto) [place] # Seg Neutrophils # VBG pH Sodium Potassium Carbon Dioxide BUN Creatinine Glucose POC Glucose 186 H 178 H 141 H Hemoglobin A1c Ur Specific [place] 09/16/19 09/16/19 09/16/19 13:24 14:36 16:04 WBC RBC Hgb RDW [place] % (Auto) [place] # Seg Neutrophils # VBG pH Sodium Potassium Carbon Dioxide BUN Creatinine Glucose POC Glucose 127 H 158 H 186 H Hemoglobin A1c Ur Specific [place] 09/16/19 09/16/19 09/16/19 17:03 17:41 18:11 WBC RBC Hgb RDW [place] % (Auto) [place] # Seg Neutrophils # VBG pH Sodium Potassium Carbon Dioxide BUN Creatinine Glucose POC Glucose 178 H 145 H 117 H Hemoglobin A1c Ur Specific [place] 09/16/19 09/16/19 09/16/19 18:59 19:06 20:53 WBC RBC Hgb RDW [place] % (Auto) [place] # Seg Neutrophils # VBG pH Sodium 136 L Potassium 3.4 L Carbon Dioxide 18 L BUN 5 L Creatinine 0.6 L Glucose 142 H POC Glucose 134 H 142 H Hemoglobin A1c Ur Specific [place] 09/16/19 09/16/19 09/17/19 22:17 23:39 01:03 WBC RBC Hgb RDW [place] % (Auto) [place] # Seg Neutrophils # VBG pH Sodium Potassium Carbon Dioxide BUN Creatinine Glucose POC Glucose 139 H 192 H 202 H Hemoglobin A1c Ur Specific [place] 09/17/19 09/17/19 09/17/19 06:35 07:33 07:33 WBC RBC Hgb RDW [place] % (Auto) [place] # Seg Neutrophils # VBG pH Sodium Potassium 3.4 L Carbon Dioxide 16 L BUN 6 L Creatinine 0.6 L Glucose 233 H POC Glucose 238 H 236 H Hemoglobin A1c Ur Specific [place] 09/17/19 11:55 WBC RBC Hgb RDW [place] % (Auto) [place] # Seg Neutrophils # VBG pH Sodium Potassium Carbon Dioxide BUN Creatinine Glucose POC Glucose 276 H Hemoglobin A1c Ur Specific [place]
[2019-09-17] MEDS: SODIUM CHLORIDE 0.9% 1000 ML 1,000 ML IV SCH (14:42)
[2019-09-17 16:41] LABS: BUN/Creatinine Ratio 10; Blood Urea Nitrogen 7 mg/dL (9-20); Calcium 8.8 mg/dL (8.4-10.2); Hemolysis Index 34
[2019-09-18 05:29] LABS: Basophils # (Auto) 0.1 K/mm3 (0.0-0.1); Basophils % (Auto) 1.1 % (0.0-1.8); Eosinophils # (Auto) 0.1 K/mm3 (0.0-0.4); Eosinophils % (Auto) 0.9 % (0.0-4.3); Hematocrit 41.3 % (35.5-45.6); Hemoglobin 14.1 gm/dl (11.8-15.2); Lymphocytes # (Auto) 2.9 K/mm3 (1.2-5.4); Lymphocytes % (Auto) 35.5 % (13.4-35.0); Mean Corpuscular HGB Conc 34 % (32-34); Mean Corpuscular Volume 89 fl (84-94); Monocytes # (Auto) 0.6 K/mm3 (0.0-0.8); Monocytes % (Auto) 7.1 % (0.0-7.3); Platelet Count 274 K/mm3 (140-440); Red Blood Count 4.63 M/mm3 (3.65-5.03); Red Cell Distribution Width 13.3 % (13.2-15.2)
[2019-09-18 06:00] LABS: BUN/Creatinine Ratio 12; Blood Urea Nitrogen 6 mg/dL (9-20); Calcium 8.5 mg/dL (8.4-10.2); Hemolysis Index 10
[2019-09-18] MEDS: CLINDAMYCIN 600 MG/50 mL 600 MG/50 ML BAG IV SCH ×2 (06:17→13:25)
[2019-09-18] MEDS: INSULIN LISPRO 100 UNIT/ML SUB-Q SCH ×2 (08:30→12:18)
[2019-09-18] MEDS: INSULIN NPH/REGULAR 70/30 INJ SUB-Q SCH (08:31)
[2019-09-18] MEDS: amLODIPine 5 MG TAB PO SCH (10:10)
[2019-09-18] MEDS: ENOXAPARIN 40 MG/0.4 ML INJ SUB-Q SCH (10:10)
[2019-09-18] MEDS: METOPROLOL TARTRATE 50 MG TAB PO SCH (10:10)
--- NOTE | 2019-09-18 12:06 | Progress Note ---
Subjective Date of service: 09/18/19 Interval history: Patient is seen today for: Seen and examined at bedside; 24hour events reviewed; nursing and respiratory care staff consulted; no adverse overnight events reported to me; Objective Vital Signs - 12hr 09/18/19 09/18/19 09/18/19 01:00 02:00 03:00 Temperature Pulse Rate 86 81 88 Pulse Rate [ Apical] Pulse Rate [ From Monitor] Respiratory 25 H 16 29 H Rate Blood Pressure 145/92 151/85 141/91 O2 Sat by Pulse 100 98 97 Oximetry 09/18/19 09/18/19 09/18/19 04:00 05:01 06:01 Temperature 97.7 F Pulse Rate 77 85 84 Pulse Rate [ Apical] Pulse Rate [ From Monitor] Respiratory 23 24 27 H Rate Blood Pressure 164/98 164/98 157/93 O2 Sat by Pulse 94 98 98 Oximetry 09/18/19 09/18/19 09/18/19 07:01 08:00 09:00 Temperature 97.7 F Pulse Rate 83 84 90 Pulse Rate [ 84 Apical] Pulse Rate [ 84 From Monitor] Respiratory 18 18 36 H Rate Blood Pressure 178/111 177/101 179/99 O2 Sat by Pulse 95 97 96 Oximetry 09/18/19 09/18/19 09/18/19 10:00 10:10 11:01 Temperature Pulse Rate 86 93 H Pulse Rate [ Apical] Pulse Rate [ From Monitor] Respiratory Rate Blood Pressure 193/109 193/109 144/90 O2 Sat by Pulse Oximetry CBC and BMP: 09/18/19 05:10 09/18/19 05:10 Abnormal lab findings: Abnormal Labs 09/15/19 09/15/19 09/15/19 01:17 01:33 01:33 WBC 15.0 H RBC 5.07 H Hgb 15.4 H RDW 13.0 L Lymph % (Auto) [place] % (Auto) 7.6 H [place] # 1.1 H Seg Neutrophils # 9.5 H VBG pH Sodium 133 L Potassium Carbon Dioxide 15 L BUN Creatinine Glucose 425 H POC Glucose 345 H Hemoglobin A1c Ur Specific [place] 09/15/19 09/15/19 09/15/19 04:54 09:06 09:42 WBC RBC Hgb RDW Lymph % (Auto) [place] % (Auto) [place] # Seg Neutrophils # VBG pH 7.248 L Sodium 134 L Potassium Carbon Dioxide 14 L BUN 8 L Creatinine 0.7 L Glucose 297 H POC Glucose 289 H Hemoglobin A1c Ur Specific [place] 09/15/19 09/15/19 09/15/19 09:52 11:20 11:49 WBC RBC Hgb RDW Lymph % (Auto) [place] % (Auto) [place] # Seg Neutrophils # VBG pH Sodium 135 L Potassium Carbon Dioxide 14 L BUN 7 L Creatinine 0.7 L Glucose 279 H POC Glucose 281 H 246 H Hemoglobin A1c Ur Specific [place] 09/15/19 09/15/19 09/15/19 13:33 13:40 13:40 WBC RBC Hgb RDW Lymph % (Auto) [place] % (Auto) [place] # Seg Neutrophils # VBG pH Sodium 136 L Potassium Carbon Dioxide 14 L BUN 7 L Creatinine 0.7 L Glucose 257 H POC Glucose 231 H Hemoglobin A1c 10.5 H Ur Specific [place] 09/15/19 09/15/19 09/15/19 15:05 15:15 16:36 WBC RBC Hgb RDW Lymph % (Auto) [place] % (Auto) [place] # Seg Neutrophils # VBG pH Sodium 134 L Potassium Carbon Dioxide 13 L BUN 6 L Creatinine 0.6 L Glucose 242 H POC Glucose 219 H 240 H Hemoglobin A1c Ur Specific [place] 09/15/19 09/15/19 09/15/19 16:40 17:26 18:00 WBC RBC Hgb RDW Lymph % (Auto) [place] % (Auto) [place] # Seg Neutrophils # VBG pH Sodium Potassium Carbon Dioxide 15 L BUN 5 L Creatinine 0.6 L Glucose 230 H POC Glucose 231 H 221 H Hemoglobin A1c Ur Specific [place] 09/15/19 09/15/19 09/15/19 19:15 20:14 21:09 WBC RBC Hgb RDW Lymph % (Auto) [place] % (Auto) [place] # Seg Neutrophils # VBG pH Sodium Potassium Carbon Dioxide BUN Creatinine Glucose POC Glucose 213 H 192 H 204 H Hemoglobin A1c Ur Specific [place] 09/15/19 09/15/19 09/15/19 22:27 23:12 Unknown WBC RBC Hgb RDW Lymph % (Auto) [place] % (Auto) [place] # Seg Neutrophils # VBG pH Sodium Potassium Carbon Dioxide BUN Creatinine Glucose POC Glucose 194 H 196 H Hemoglobin A1c Ur Specific [place] 1.037 H 09/16/19 09/16/19 09/16/19 00:20 00:53 01:24 WBC RBC Hgb RDW Lymph % (Auto) [place] % (Auto) [place] # Seg Neutrophils # VBG pH Sodium Potassium Carbon Dioxide 18 L BUN 5 L Creatinine 0.7 L Glucose 188 H POC Glucose 173 H 159 H Hemoglobin A1c Ur Specific [place] 09/16/19 09/16/19 09/16/19 02:19 03:18 03:55 WBC RBC Hgb RDW 13.1 L Lymph % (Auto) [place] % (Auto) 8.3 H [place] # 0.9 H Seg Neutrophils # VBG pH Sodium Potassium Carbon Dioxide BUN Creatinine Glucose POC Glucose 161 H 168 H Hemoglobin A1c Ur Specific [place] 09/16/19 09/16/19 09/16/19 03:55 04:20 05:36 WBC RBC Hgb RDW Lymph % (Auto) [place] % (Auto) [place] # Seg Neutrophils # VBG pH Sodium Potassium Carbon Dioxide 18 L BUN 5 L Creatinine 0.6 L Glucose 182 H POC Glucose 193 H 179 H Hemoglobin A1c Ur Specific [place] 09/16/19 09/16/19 09/16/19 06:24 08:26 09:09 WBC RBC Hgb RDW Lymph % (Auto) [place] % (Auto) [place] # Seg Neutrophils # VBG pH Sodium Potassium 3.3 L Carbon Dioxide 16 L BUN 5 L Creatinine 0.6 L Glucose 201 H POC Glucose 155 H 174 H Hemoglobin A1c Ur Specific [place] 09/16/19 09/16/19 09/16/19 09:43 10:23 11:39 WBC RBC Hgb RDW Lymph % (Auto) [place] % (Auto) [place] # Seg Neutrophils # VBG pH Sodium Potassium Carbon Dioxide BUN Creatinine Glucose POC Glucose 186 H 178 H 141 H Hemoglobin A1c Ur Specific [place] 09/16/19 09/16/19 09/16/19 13:24 14:36 16:04 WBC RBC Hgb RDW Lymph % (Auto) [place] % (Auto) [place] # Seg Neutrophils # VBG pH Sodium Potassium Carbon Dioxide BUN Creatinine Glucose POC Glucose 127 H 158 H 186 H Hemoglobin A1c Ur Specific [place] 09/16/19 09/16/19 09/16/19 17:03 17:41 18:11 WBC RBC Hgb RDW Lymph % (Auto) [place] % (Auto) [place] # Seg Neutrophils # VBG pH Sodium Potassium Carbon Dioxide BUN Creatinine Glucose POC Glucose 178 H 145 H 117 H Hemoglobin A1c Ur Specific [place] 09/16/19 09/16/19 09/16/19 18:59 19:06 20:53 WBC RBC Hgb RDW Lymph % (Auto) [place] % (Auto) [place] # Seg Neutrophils # VBG pH Sodium 136 L Potassium 3.4 L Carbon Dioxide 18 L BUN 5 L Creatinine 0.6 L Glucose 142 H POC Glucose 134 H 142 H Hemoglobin A1c Ur Specific [place] 09/16/19 09/16/19 09/17/19 22:17 23:39 01:03 WBC RBC Hgb RDW Lymph % (Auto) [place] % (Auto) [place] # Seg Neutrophils # VBG pH Sodium Potassium Carbon Dioxide BUN Creatinine Glucose POC Glucose 139 H 192 H 202 H Hemoglobin A1c Ur Specific [place] 09/17/19 09/17/19 09/17/19 06:35 07:33 07:33 WBC RBC Hgb RDW Lymph % (Auto) [place] % (Auto) [place] # Seg Neutrophils # VBG pH Sodium Potassium 3.4 L Carbon Dioxide 16 L BUN 6 L Creatinine 0.6 L Glucose 233 H POC Glucose 238 H 236 H Hemoglobin A1c Ur Specific [place] 09/17/19 09/17/19 09/17/19 11:55 16:08 16:45 WBC RBC Hgb RDW Lymph % (Auto) [place] % (Auto) [place] # Seg Neutrophils # VBG pH Sodium Potassium Carbon Dioxide 17 L BUN 7 L Creatinine 0.7 L Glucose 316 H POC Glucose 276 H 282 H Hemoglobin A1c Ur Specific [place] 09/17/19 09/18/19 09/18/19 20:59 05:10 05:10 WBC RBC Hgb RDW Lymph % (Auto) 35.5 H [place] % (Auto) [place] # Seg Neutrophils # VBG pH Sodium Potassium 3.4 L Carbon Dioxide 19 L BUN 6 L Creatinine 0.5 L Glucose 232 H POC Glucose 260 H Hemoglobin A1c Ur Specific [place] 09/18/19 11:41 WBC RBC Hgb RDW Lymph % (Auto) [place] % (Auto) [place] # Seg Neutrophils # VBG pH Sodium Potassium Carbon Dioxide BUN Creatinine Glucose POC Glucose 270 H Hemoglobin A1c Ur Specific [place]
--- NOTE | 2019-09-18 12:52 | Discharge Summary ---
Providers - Providers Date of Admission: 09/15/19 05:21 Date of discharge: 09/18/19 Attending physician: NIRAV CROUCH 09/15/19 08:41 Consult to Physician [CONS] Stat Comment: Consulting Provider: CAIT PORTILLO Physician Instructions: Reason For Exam: CCU admission Primary care physician: RANCH MANAGER Hospitalization Condition: Stable Hospital course: Hyperosmolar Non ketotic state in new onset diabetes sec to Morbid Obesity Patient did well on IV insulin and sliding scale coverage. Patient was transitioned to Novolin 70/30 20 units twice a day. His blood glucose levels are averaging around 240. Patient was asymptomatic. Patient is due to mind to lose a lot of his weight so that he does not have to take aspirin. He weighs about 470 pounds. Bariatric surgery option was given but he wants to do it by himself by dieting and exercise. New onset DM. Hemoglobin A1c between 10 and 11--10.5 exactly Patient told and educated about A1c and its importance. Patient was given a goal of managing A1c between 6 and 7 Patient to be discharged on Novolin 70/30 25 units twice a day along with the glucometer and strips/lancets. Patient to get Relion Insulin from [facility] in the form of vials. And insulin syringes Sepsis. Etiology secondary to abdominal wall cellulitis secondary to small abscess which is draining on the right suprapubic region. Patient to be discharged on Levaquin for another 10 days. Hypertension--patient initiated on valsartan 160 mg once a day. Abdominal wall cellulitis. Improving. Patient to be discharged on Levaquin 750 mg once a day for 10 days Morbid obesity. Patient has been counseled on the importance of exercise, diet and weight loss. Patient is aware of his weight and wants to lose at least 200 pounds by exercising and dieting. Does not want any bariatric surgery at this point of time. Patient counseled extensively by the nurse and myself at bedside. Patient wants to cooperate and take care of himself. Disposition: - TO HOME OR SELFCARE Core Measure Documentation - Palliative Care Palliative Care/ Comfort Measures: Not Applicable - Core Measures Any of the following diagnoses?: none Exam - Constitutional Vitals: Temp Pulse Resp BP Pulse Ox 97.7 F 95 H 36 H 144/90 96 09/18/19 08:00 09/18/19 10:10 09/18/19 09:00 09/18/19 11:01 09/18/19 09:00 General appearance: Present: no acute distress, well-nourished - EENT Eyes: Present: PERRL ENT: hearing intact, clear oral mucosa - Neck Neck: Present: supple, normal ROM - Respiratory Respiratory effort: normal Respiratory: bilateral: CTA - Cardiovascular Heart rate: 100 Rhythm: regular Heart Sounds: Present: S1 & S2. Absent: rub, click - Extremities Extremities: no ischemia, pulses intact, pulses symmetrical, No edema Peripheral Pulses: within normal limits - Abdominal General gastrointestinal: Present: soft, non-tender, non-distended, normal bowel sounds Male genitourinary: Present: normal - Integumentary Integumentary: Present: clear, warm, dry - Musculoskeletal Musculoskeletal: gait normal, strength equal bilaterally - Psychiatric Psychiatric: appropriate mood/affect, intact judgment & insight - Neurologic Neurologic: CNII-XII intact, moves all extremities - Allied Health Allied health notes reviewed: nursing, case management Plan Activity: no restrictions Diet: diabetic Follow up with: SULEMAN VIGIL MD [Primary Care Provider] - 3-5 Days STEVEN ALVARADO MD [Staff Physician] - 7 Days
[2019-09-18] MEDS ORDERED: POTASSIUM CHLORIDE ER 20 MEQ TAB PO ONE (13:00)
[2019-09-18 14:23] VITALS: BP 147/85
== END 2019-09-18 14:00 | disposition home or self-care (01) | DRG 871 ==
LOC: ED 22:16 → CC1 09-15 05:21
PROVIDERS: ADMIT Internal Medicine Geriatric Medicine; ATTEND Internal Medicine
DX: A41.9 Sepsis, unspecified organism (principal); E11.10 Type 2 diabetes mellitus with ketoacidosis without coma; L03.311 Cellulitis of abdominal wall; Z68.44 Body mass index [BMI] 60.0-69.9, adult; L02.211 Cutaneous abscess of abdominal wall; I10 Essential (primary) hypertension; F12.11 Cannabis abuse, in remission; E66.01 Morbid (severe) obesity due to excess calories; Z79.4 Long term (current) use of insulin; Z71.3 Dietary counseling and surveillance; Z83.3 Family history of diabetes mellitus; Z79.899 Other long term (current) drug therapy
CPT/HCPCS: 36415; 80048; 81001; 82140; 82805; 82962; 83036; 83735; 84100; 85025; 85027; 87040; 87116; 96372; 96374; 96375; G0378; J0360; J0500; J1650; J1815; J2405; J7030